=== PATIENT | female | born 1980 | race Caucasian/White ===

== ENCOUNTER 2018-04-05 14:12 | Emergency (ER) | payer BC ==
[2018-04-05] MEDS ORDERED: NS 1,000 ML IV ONE (14:25)
--- NOTE | 2018-04-05 14:25 | EDPHY ---
H & P Stated Complaint: DNC march 28/lightheaded Time Seen by Provider: 04/05/18 14:23 HPI/ROS: HPI: This is a 38-year-old female who presents with Chief Complaint: D&C March 28, lightheaded Location: vaginal Quality:spotting Duration: 1 day Signs and Symptoms: no fever, no nausea, no vomiting, no hematemesis, no blood in stool, no abdominal bloating, no diarrhea, no back pain, no urinary symptoms , no vaginal discharge, no indigestion, no chest pain, no shortness of breath Timing: Acute Severity: Mild Context: Patient has a history of D&C x2 for miscarriages presents with lightheadedness status post D&C on March 28 in [facility] where she is originally from. She has been in [place] since Thursday approximately 5 days. She received clearance from her OBGYN to go white water rafting which she went approximately 2 days ago. She reports that there was a lot of movement and pounding up and down in her pelvis during the white water rafting trip as well as water getting into the raft. She reports that last night she had a low- grade fever of 99 F orally, some chills and scant vaginal dark brown bleeding. She has been drinking wine and hiking and white water rafting since she has been here from out of town. She denies any actual dizziness, syncope, chest pain, shortness of breath, headache. She has not been drinking water as much as she should be. Denies any urinary symptoms or any abdominal pain. Modifying Factors: None Comment: ROS: see HPI Constitutional: No fever, no chills, no weight loss Eyes: No blurred vision Respiratory: No shortness of breath, no cough Cardiovascular: No chest pain, no palpitations Gastrointestinal: No nausea, no vomiting, no diarrhea, no hematemesis, no blood in stool Genitourinary: No dysuria, no blood in urine Extremities: No myalgias, no edema Neurologic: No weakness, no numbness Skin: No rashes, no petechiae Hematologic: No bruising, no bleeding MEDICAL/SURGICAL/SOCIAL HISTORY: Medical history: Ovarian cyst Surgical history: D&Cx 2 for miscarriage, ovarian cyst Social history: Never smoked. Family history noncontributory. CONSTITUTIONAL: Nontoxic-appearing adult white female awake and alert, no obvious distress HEENT: Atraumatic and normocephalic, PERRL, EOMI. Nares patent; no rhinorrhea; no nasal mucosal edema. Tympanic membranes clear. Oropharynx clear, no exudate and moist pink mucosa. Airway patent. No lymphadenopathy. No meningismus. Cardiovascular: Normal S1/S2, regular rate, regular rhythm, without murmur rub or gallop. PULMONARY/CHEST: Symmetrical and nontender. Clear to auscultation bilaterally. Good air movement. No accessory muscle usage. ABDOMEN: Soft, nondistended, nontender, no rebound, no guarding, no peritoneal signs, no masses or organomegaly. No CVAT. PELVIC: Patient politely refused EXTREMITIES: 2/2 pulses, strength 5/5, no deformities, no clubbing, no cyanosis or edema. NEUROLOGICAL: no focal neuro deficits. GCS 15. SKIN: Warm and dry, no erythema. no rash. Good capillary refill. Source: Patient Exam Limitations: No limitations - Medical/Surgical History Hx Asthma: No Hx Chronic Respiratory Disease: No Hx Diabetes: No Hx Cardiac Disease: No Hx Renal Disease: No Hx Cirrhosis: No Hx Alcoholism: No Hx HIV/AIDS: No Hx Splenectomy or Spleen Trauma: No Other PMH: DNCx 2 for miscarriage, ovarian cyst - Social History Smoking Status: Never smoked Constitutional: Initial Vital Signs Temperature (C) 37.1 C 04/05/18 14:17 Heart Rate 77 04/05/18 14:17 Respiratory Rate 18 04/05/18 14:17 Blood Pressure 129/78 H 04/05/18 14:17 O2 Sat (%) 97 04/05/18 14:17 O2 Delivery Mode Room Air Allergies/Adverse Reactions: Penicillins Allergy (Verified 04/05/18 14:17) Home Medications: Medication Instructions Recorded Cyclobenzaprine [Flexeril 10 MG 10 mg PO TID PRN #15 tab 04/05/18 (*)] Medical Decision Making - Diagnostics Imaging Results: Imaging Impressions Pelvic/Renal Ultrasound 04/05/18 14:25 Impression: 1. There is some complex fluid seen in the fundal endometrium, with no unusual hyperemia. 2. Bilateral simple-appearing ovarian cysts, measuring up 3.2 cm on the right ovary and 5.2 cm on the left ovary. There is no torsion or free fluid. Findings were discussed with Marylou Campos PA-C at 15:58, on 04/05/2018. ED Course/Re-evaluation: Labs, urinalysis, IV fluids, pelvic ultrasound ordered Vital signs reviewed and stable upon arrival. Will evaluate for endometritis or retained products of conception. Urinalysis reviewed; no signs of infection. Increased pH Labs reviewed. No signs of leukocytosis/anemia/platelet dysfunction/EMILY/ electrolyte imbalance/. Serum HCG Qualitative still positive after D& C several days ago. Serum HCG Quantitative ordered. 1605: Called by radiologist who advises that there is a scant amount of complex fluid in the fundal portion but no retained products of conception/ endometritis. Bilateral ovarian simple cyst right side measuring 3.2 cm and left side measuring 5.2 cm but no signs of ovarian torsion. No free fluid in the pelvis. 1605: Reassessed patient who reports that abdominal pain is minimal. Has a follow up with her OBGYN on Thursday. Flies home tomorrow to [facility]. Patient given a prescription for Flexeril. This patient was seen under the supervision of my secondary supervising physician. I evaluated care for this patient independently. Discussed this patient with Dr. Li who did not see the patient. Differential Diagnosis: Abdominal pain in a female including but not limited to ovarian cyst, pelvic inflammatory disease, ovarian torsion, urinary tract infection, and appendicitis. - Data Points Laboratory Results: Laboratory Results 04/05/18 14:40 04/05/18 14:40 04/05/18 04/05/18 04/05/18 14:40 14:40 14:40 WBC RBC Hgb Hct MCV MCH MCHC RDW Plt Count MPV Neut % (Auto) Lymph % (Auto) [place] % (Auto) Eos % (Auto) Baso % (Auto) Nucleat RBC Rel Count Absolute Neuts (auto) Absolute Lymphs (auto) Absolute Monos (auto) Absolute Eos (auto) Absolute Basos (auto) Absolute Nucleated RBC Immature Gran % Immature Gran # Sodium 140 mEq/L mEq/L (135-145) Potassium 3.3 mEq/L mEq/L (3.3-5.0) Chloride 102 mEq/L mEq/L (97-110) Carbon Dioxide 28 mEq/l mEq/l (22-31) Anion Gap 10 mEq/L mEq/L (8-16) BUN 9 mg/dL mg/dL (7-23) Creatinine 0.5 mg/dL L mg/dL (0.6-1.0) Estimated GFR > 60 Glucose 110 mg/dL H mg/dL (70-100) Calcium 9.4 mg/dL mg/dL (8.5-10.4) Beta HCG, Qual POSITIVE Beta HCG, Quant 11.24 mIU/mL H mIU/mL (0.00-4.83) Urine Color Urine Appearance Urine pH Ur Specific [place] Urine Protein Urine Ketones Urine Blood Urine Nitrate Urine Bilirubin Urine Urobilinogen Ur Leukocyte Esterase Urine RBC Urine WBC Ur Epithelial Cells Urine Glucose 04/05/18 04/05/18 14:40 14:30 WBC 9.10 10^3/uL 10^3/uL (3.80-9.50) RBC 4.26 10^6/uL 10^6/uL (4.18-5.33) Hgb 13.0 g/dL g/dL (12.6-16.3) Hct 38.5 % % (38.0-47.0) MCV 90.4 fL fL (81.5-99.8) MCH 30.5 pg pg (27.9-34.1) MCHC 33.8 g/dL g/dL (32.4-36.7) RDW 13.3 % % (11.5-15.2) Plt Count 188 10^3/uL 10^3/uL (150-400) MPV 11.2 fL fL (8.7-11.7) Neut % (Auto) 54.4 % % (39.3-74.2) Lymph % (Auto) 29.7 % % (15.0-45.0) [place] % (Auto) 10.3 % % (4.5-13.0) Eos % (Auto) 3.4 % % (0.6-7.6) Baso % (Auto) 0.9 % % (0.3-1.7) Nucleat RBC Rel Count 0.0 % % (0.0-0.2) Absolute Neuts (auto) 4.95 10^3/uL 10^3/uL (1.70-6.50) Absolute Lymphs (auto) 2.70 10^3/uL 10^3/uL (1.00-3.00) Absolute Monos (auto) 0.94 10^3/uL H 10^3/uL (0.30-0.80) Absolute Eos (auto) 0.31 10^3/uL 10^3/uL (0.03-0.40) Absolute Basos (auto) 0.08 10^3/uL 10^3/uL (0.02-0.10) Absolute Nucleated RBC 0.00 10^3/uL 10^3/uL (0-0.01) Immature Gran % 1.3 % H % (0.0-1.1) Immature Gran # 0.12 10^3/uL H 10^3/uL (0.00-0.10) Sodium Potassium Chloride Carbon Dioxide Anion Gap BUN Creatinine Estimated GFR Glucose Calcium Beta HCG, Qual Beta HCG, Quant Urine Color PALE YELLOW Urine Appearance CLEAR Urine pH 8.0 H (5.0-7.5) Ur Specific [place] 1.002 (1.002-1.030) Urine Protein NEGATIVE (NEGATIVE) Urine Ketones NEGATIVE (NEGATIVE) Urine Blood 2+ H (NEGATIVE) Urine Nitrate NEGATIVE (NEGATIVE) Urine Bilirubin NEGATIVE (NEGATIVE) Urine Urobilinogen NEGATIVE EU EU (0.2-1.0) Ur Leukocyte Esterase NEGATIVE (NEGATIVE) Urine RBC 1-3 /hpf /hpf (0-3) Urine WBC 1-3 /hpf /hpf (0-3) Ur Epithelial Cells TRACE /lpf /lpf (NONE-1+) Urine Glucose NEGATIVE (NEGATIVE) Medications Given: Discontinued Medications Sodium Chloride (Ns) 1,000 mls @ 0 mls/hr IV ONCE ONE; Wide Open PRN Reason: Protocol Stop: 04/05/18 14:26 Last Admin: 04/05/18 14:44 Dose: 1,000 mls Departure - Departure Disposition: Home, Routine, Self-Care Clinical Impression: Status post dilatation and curettage Ovarian cyst Qualifiers: Laterality: bilateral Qualified Code(s): N83.201 - Unspecified ovarian cyst, right side; N83.202 - Unspecified ovarian cyst, left side; N83.202 - Unspecified ovarian cyst, left side Condition: Good Instructions: Ovarian Cyst (ED), Pelvic Rest (ED) Additional Instructions: Take Tylenol 650 mg every 4 hours and/or Ibuprofen 600-800 mg every 8 hours with food as needed for pain. Use Flexeril every 8 hours as needed for muscle spasm. Observe pelvic rest until all symptoms have resolved. Avoid any high impact activities until pain free. Follow up with OBGYN as previously scheduled on Thursday. Referrals: SIMONE SANCHEZ [Other] - As per Instructions Prescriptions: Cyclobenzaprine [Flexeril 10 MG (*)] 10 mg PO TID PRN #15 tab PRN Reason: Spasms
[2018-04-05 14:51] LABS: PLATELET COUNT 188 10^3/uL (150-400)
[2018-04-05 16:22] VITALS: BP 101/61
== END 2018-04-05 16:21 | disposition home or self-care (01) ==
DX: O04.6 Delayed or excessive hemorrhage following (induced) termination of pregnancy (principal); E86.9 Volume depletion, unspecified; N83.201 Unspecified ovarian cyst, right side; N83.202 Unspecified ovarian cyst, left side